=== PATIENT | female | born 1980 | race American Indian/Alaskan Native ===

== ENCOUNTER 2017-11-04 05:58 | Emergency (ER) | payer MEDICAID ==
[2017-11-04] MEDS ORDERED: ASPIRIN PO ONE (06:20)
[2017-11-04 07:16] LABS: Basophils # (Auto) 0.1 K/mm3 (0.0-0.1); Basophils % (Auto) 0.5 % (0.0-1.8); Eosinophils # (Auto) 0.2 K/mm3 (0.0-0.4); Eosinophils % (Auto) 1.8 % (0.0-4.3); Hematocrit 37.5 % (30.3-42.9); Hemoglobin 12.6 gm/dl (10.1-14.3); Lymphocytes # (Auto) 2.1 K/mm3 (1.2-5.4); Lymphocytes % (Auto) 20.8 % (13.4-35.0); Mean Corpuscular HGB Conc 34 % (30-34); Mean Corpuscular Hemoglobin 27 pg (28-32); Mean Corpuscular Volume 79 fl (79-97); Monocytes # (Auto) 0.6 K/mm3 (0.0-0.8); Monocytes % (Auto) 5.6 % (0.0-7.3); Platelet Count 305 K/mm3 (140-440); Red Blood Count 4.72 M/mm3 (3.65-5.03); Red Cell Distribution Width 17.6 % (13.2-15.2)
[2017-11-04 07:30] LABS: BUN/Creatinine Ratio 22; Blood Urea Nitrogen 13 mg/dL (7-17); Calcium 9.5 mg/dL (8.4-10.2); Hemolysis Index 2
--- NOTE | 2017-11-04 08:02 | Emergency Department Report ---
ED Palpitations HPI - General Chief Complaint: Arrhythmia/Palpitations Stated Complaint: ELEVATED HR Time Seen by Provider: 11/04/17 08:02 Source: patient Mode of arrival: Ambulatory Limitations: No Limitations - History of Present Illness Initial Comments: Patient was initially diagnosed in [place] weight SVT she was placed on metoprolol. She has not been taking her metoprolol for a long time. This morning she woke up with palpitations and had trace in which chest pain. Currently how palpitation and chest pain has resolved. I emphasized the importance of taking her metoprolol and she and her understood that it' s important for her to take her medications. Complaint: rapid heart beat, "heart racing" -: Sudden Context: occured during rest Arrythmia History: SVT Associated Symptoms: chest pain - Related Data Home Medications Medication Instructions Recorded Confirmed Last Taken Aspir-Low 1 tab PO DAILY 11/04/17 11/04/17 Unknown Metoprolol 50 mg PO BID 11/04/17 11/04/17 Unknown Previous Rx's Medication Instructions Recorded Last Taken Type Atenolol [Tenormin] 25 mg PO DAILY #30 tab 11/04/17 Unknown Rx Allergies Allergy/AdvReac Type Severity Reaction Status Date / Time iodine Allergy Hives Verified 11/04/17 06:19 meperidine [From Demerol] Allergy Hives Verified 11/04/17 06:19 tramadol Allergy Hives Verified 11/04/17 06:20 ED Review of Systems ROS: Stated complaint: ELEVATED HR Other details as noted in HPI Comment: All other systems reviewed and negative Constitutional: denies: chills, fever Eyes: denies: eye pain ENT: denies: ear pain Respiratory: no symptoms reported Cardiovascular: chest pain, palpitations Endocrine: no symptoms reported Gastrointestinal: denies: abdominal pain, nausea, vomiting, diarrhea Genitourinary: denies: urgency, dysuria, frequency Musculoskeletal: denies: back pain, joint swelling Skin: denies: rash, lesions Neurological: denies: headache, weakness, numbness Psychiatric: denies: anxiety, depression Hematological/Lymphatic: denies: easy bleeding, easy bruising ED Past Medical Hx - Past Medical History Previous Medical History?: Yes Hx Heart Attack/AMI: Yes (X4) - Surgical History Additional Surgical History: X2, Tubal Ligation, Cardiac Ablation - Social History Smoking Status: Current Every Day Smoker Substance Use Type: None - Medications Home Medications: Home Medications Medication Instructions Recorded Confirmed Last Taken Type Aspir-Low 1 tab PO DAILY 11/04/17 11/04/17 Unknown History Atenolol [Tenormin] 25 mg PO DAILY #30 tab 11/04/17 Unknown Rx Metoprolol 50 mg PO BID 11/04/17 11/04/17 Unknown History ED Physical Exam - General Limitations: No Limitations General appearance: alert, in no apparent distress, obese - Head Head exam: Present: atraumatic, normocephalic, normal inspection - Eye Eye exam: Present: normal appearance, PERRL, EOMI Pupils: Present: normal accommodation - ENT ENT exam: Present: normal exam, normal orophraynx, mucous membranes moist - Neck Neck exam: Present: normal inspection, meningismus, full ROM - Respiratory Respiratory exam: Present: normal lung sounds bilaterally. Absent: respiratory distress, wheezes, rales, rhonchi - Cardiovascular Cardiovascular Exam: Present: normal rhythm, tachycardia, normal heart sounds - GI/Abdominal GI/Abdominal exam: Present: soft, normal bowel sounds. Absent: distended, tenderness, guarding, rebound - Extremities Exam Extremities exam: Present: normal inspection, full ROM, normal capillary refill - Back Exam Back exam: Present: normal inspection, full ROM. Absent: tenderness, CVA tenderness (R), CVA tenderness (L) - Neurological Exam Neurological exam: Present: alert, oriented X3, CN II-XII intact - Psychiatric Psychiatric exam: Present: normal affect, normal mood. Absent: depressed - Skin Skin exam: Present: warm, dry, intact, normal color. Absent: rash ED Course Vital Signs 11/04/17 11/04/17 11/04/17 06:15 07:30 07:39 Temperature 98 F Pulse Rate 116 H 90 Respiratory 18 16 Rate Blood Pressure 129/72 Blood Pressure 122/69 [Left] O2 Sat by Pulse 100 99 90 Oximetry 11/04/17 11/04/17 11/04/17 07:45 08:00 08:15 Temperature Pulse Rate 90 94 H 91 H Respiratory 21 18 21 Rate Blood Pressure 115/68 117/71 114/66 Blood Pressure [Left] O2 Sat by Pulse 97 97 100 Oximetry 11/04/17 11/04/17 11/04/17 08:20 08:31 08:45 Temperature Pulse Rate 104 H 95 H Respiratory 15 13 Rate Blood Pressure 114/66 114/66 Blood Pressure [Left] O2 Sat by Pulse 100 99 Oximetry 11/04/17 11/04/17 11/04/17 09:01 09:15 09:31 Temperature Pulse Rate 89 89 89 Respiratory 19 18 17 Rate Blood Pressure 114/66 114/66 114/66 Blood Pressure [Left] O2 Sat by Pulse 99 97 96 Oximetry 11/04/17 11/04/17 11/04/17 09:45 10:01 10:15 Temperature Pulse Rate 87 88 87 Respiratory 19 16 17 Rate Blood Pressure 114/66 114/66 114/66 Blood Pressure [Left] O2 Sat by Pulse 98 97 96 Oximetry 11/04/17 11/04/17 10:31 10:45 Temperature Pulse Rate 84 86 Respiratory 18 15 Rate Blood Pressure 114/66 114/66 Blood Pressure [Left] O2 Sat by Pulse 98 99 Oximetry ED Medical Decision Making - Lab Data Result diagrams: 11/04/17 06:43 11/04/17 06:43 - EKG Data -: EKG Interpreted by [facility] EKG shows normal: sinus rhythm Rate: tachycardia (114) - EKG Data When compared to previous EKG there are: previous EKG unavailable Interpretation: other (No STEMI.) - Radiology Data Radiology results: report reviewed, image reviewed - Medical Decision Making Palpitations. Sinus Tachycardia. Critical care attestation.: If time is entered above; I have spent that time in minutes in the direct care of this critically ill patient, excluding procedure time. ED Disposition Clinical Impression: Tachycardia Chest pain Qualifiers: Chest pain type: unspecified Qualified Code(s): R07.9 - Chest pain, unspecified Disposition: DC-01 TO HOME OR SELFCARE Is pt being admited?: No Does the pt Need Aspirin: Yes Condition: Stable Instructions: Chest Pain (ED), Atrial Tachycardia (ED) Additional Instructions: Please follow up with the pipe smoking machine offbearer Dr. Cachorro Felipe on Monday. Return to the emergency room if her condition worsens. Prescriptions: Atenolol [Tenormin] 25 mg PO DAILY #30 tab Referrals: PRIMARY CARE, [Primary Care Provider] - 3-5 Days CHRISTINA FELIPE MD [Staff Physician] - 3-5 Days Time of Disposition: 11:00
[2017-11-04] MEDS ORDERED: LOPRESSOR PO ONE (08:16)
[2017-11-04] MEDS ORDERED: NACL 0.9% 1000 ML 1,000 ML IV ONE (08:17)
--- NOTE | 2017-11-04 08:50 | XRay Report ---
FINAL REPORT EXAM: XR CHEST 1V AP HISTORY: chest pain TECHNIQUE: AP portable view(s) of the chest obtained. PRIORS: None. FINDINGS: No mediastinal shift. Cardiac silhouette is not enlarged. No pneumothorax, effusion, or focal pulmonary opacity identified. No acute skeletal findings. IMPRESSION: No acute pulmonary finding identified.
[2017-11-04 11:02] VITALS: BP 114/66
== END 2017-11-04 11:27 | disposition home or self-care (01) ==
LOC: ED 05:58
DX: R00.0 Tachycardia, unspecified (principal); R07.89 Other chest pain; I21.9 Acute myocardial infarction, unspecified; F17.200 Nicotine dependence, unspecified, uncomplicated; Z98.51 Tubal ligation status; Z88.8 Allergy status to other drugs, medicaments and biological substances
CPT/HCPCS: 36415; 71045; 80048; 83880; 84443; 84484; 84703; 85025; 85379; 93005; 93010; 99284; J7030